=== PATIENT | male | born 1945 | race African-American/Black ===

== ENCOUNTER → 2016-09-21 | Outpatient (CLI) | payer MEDICARE ==
--- NOTE | ~2016-09-21 | MR165 ---
[facility] A Service of [facility] & [facility] RADIOLOGY TEXT RESULTS PATIENT: JAIME GEORGES LOCATION: [facility] : 49 UNIT #: [id number] AGE: [address]: KHLOE LOWRY MD SEX: M ORDER DR: [id number] [facility]. [place], [place] [address] [id number] O MR#: [id number] Acc #: [id number] NAME: JAIME GEORGES : 1945 SEX: M STUDY DATE/TIME: 09/21/2016 8:03 UNIT: [facility] ROOM: STUDY DESCRIPTION: MR Shoulder Wo Contrast Rt Attending Physician: Khloe Lowry M.D. Referring Physician: Khloe Lowry M.D. Ordering Physician: Physician Non-Staff Primary Care Physician: Kurtis Chester M.D. MRI CENTER REPORT This report is preliminary unless electronic signature is present. EXAM Right shoulder MRI without contrast, 09/21/2016 HISTORY 71-year-old male with right shoulder pain and decreased range of motion status post 8 foot fall from tree 09/15/2016. No prior right shoulder surgery. COMPARISON Right shoulder MRI 07/16/2010. Right shoulder x-rays 09/15/2016. TECHNIQUE Routine unenhanced multiplanar, multisequence high field MR imaging of the right shoulder was performed. FINDINGS There is a full-thickness, near full width tear involving both the insertional supraspinatus and infraspinatus tendons. The tendons are retracted at least 2.5 cm over the middle third humeral head. No significant associated muscle atrophy. Teres minor and subscapularis tendons remain intact. The long biceps tendon demonstrates a thin longitudinal split tear in the bicipital groove of the humerus involving approximately 25% of the tendon thickness. The intraarticular portion of the tendon is not well visualized and may be torn. Mild degeneration of the superior glenoid labrum. Remainder of the glenoid labrum appears intact. Glenohumeral articular cartilage is intact. No glenohumeral effusion. Moderate degenerative change of the acromioclavicular joint. No subacromial spur. STS. [facility] A Service of [facility] & [facility] RADIOLOGY TEXT RESULTS PATIENT: JAIME GEORGES LOCATION: [facility] : 49 UNIT #: [id number] AGE: [address]: KHLOE LOWRY MD SEX: M ORDER DR: Bone marrow signal is within expected limits. Visualized musculature is unremarkable. IMPRESSION 1. Full-thickness, near full width tears of the insertional supraspinatus and infraspinatus tendons. The torn tendons are retracted at least 2.5 cm over the middle third of the humeral head. No significant muscle atrophy. 2. Longitudinal split tear of the end of the long biceps tendon and the bicipital groove of the humerus involving at least 25% of the tendon thickness. The intraarticular portion of the long biceps tendon is not well visualized and may be torn. 3. Mild superior labral degeneration. 4. [id number] acromioclavicular joint arthrosis. Dictated by... August Peres M.D. THIS IS AN ELECTRONICALLY VERIFIED REPORT August Peres M.D. at 09/22/2016 11:47 AM Gregg TD: 09/22/2016 03:31 JOB #: [id number] MRI CENTER REPORT Page 1 of 1 COPY
== END | disposition home or self-care (01) ==
LOC: CMRI 07:37 → EDBD 08:00 → CMRI 08:00
DX: S46.011A Strain of muscle(s) and tendon(s) of the rotator cuff of right shoulder, initial encounter (principal); M19.011 Primary osteoarthritis, right shoulder
CPT/HCPCS: 73221